=== PATIENT | female | born 2000 | race Caucasian/White ===

== ENCOUNTER 2022-05-17 10:00 | Emergency (ER) | payer OTHER, SELFPAY ==
[2022-05-17 10:55] VITALS: BP 148/77; PULSE 75; RESP 16; TEMP 36.9; O2SAT 100
--- NOTE | 2022-05-17 11:46 | ED.EYEPROB ---
HPI - Eye Problem General Chief complaint: Eye Problems Stated complaint: right eye redness Source: patient and family (significant other ) Mode of arrival: ambulatory Limitations: no limitations History of Present Illness HPI Narrative: 21-year-old female presents to [facility] with complaints of redness, irritation, drainage and matting to her right eye the past 2 days. Patient reports that her nephew recently had pinkeye and she also works at a local daycare. Patient reports that she does wear contacts but has not been wearing them since symptoms started. Patient is currently wearing glasses today. Patient denies injury to right. Patient denies visual changes, fever, body aches, chills, nausea vomiting or diarrhea. MD chief complaint: eye redness Onset (ago): day(s) (2) Location: right eye Mechanism: none Associated symptoms: none Treatments Prior to Arrival: none Related Data Allergies Allergy/AdvReac Type Severity Reaction Status Date / Time No Known Allergies Allergy Verified 05/17/22 11:27 Review of Systems Constitutional: Constitutional: Denies chills, Denies fatigue, Denies fever(s) and Denies weakness Eyes: Comments: right eye redness, irritation and drainage ENT: Denies vertigo, Denies dizziness, Denies nasal congestion and Denies sore throat Cardiovascular: Cardiovascular: Denies chest pain Respiratory: Respiratory: Denies cough, Denies dyspnea and Denies wheezing Gastrointestinal: Gastrointestinal: Denies diarrhea, Denies nausea and Denies vomiting Integumentary/Breasts: Skin/Breast: Denies rash Neurologic: Denies vertigo and Denies dizziness PMFSH Comments At time of signature, I agree with nursing past medical, surgical, social and family history. There is no relevant family history pertinent to the presenting complaint. Exam Const: General: healthy appearing and no acute distress Nutritional Appearance: well nourished Orientation/consciousness: patient oriented x3 Limitations: no limitations and No altered mental status HENMT: Head: normal to inspection Mouth: Yes Normal oral and palatal mucosa present and Yes moist mucous membranes Throat: posterior oropharynx normal and uvula midline Eyes: Conjunctivae: conjunctival abnormality right Pupils: Equal, round and reactive pupils present Direct Ophthalmoscopy: no photophobia Neck: Neck: normal visual inspection Resp: Effort & Inspection: normal respiratory effort and not labored Auscultation: clear to auscultation bilaterally, no crackles, no rales and no rhonchi Cardio: Rate: regular rate Rhythm: regular rhythm Heart sounds: no murmurs Skin: General skin exam: normal color Rashes: no rashes Neuro: General: patient oriented x3 Psych: Affect: normal affect Attitude: cooperative Course Course Level of Care: Express Care Visit Vital Signs Vital signs: Vital Signs Temperature 36.9 C 05/17/22 10:55 Pulse Rate 75 05/17/22 10:55 Respiratory Rate 16 05/17/22 10:55 Blood Pressure 148/77 H 05/17/22 10:55 Pulse Oximetry 100 05/17/22 10:55 Oxygen Delivery Room Air 05/17/22 10:55 Temperature 36.9 C 05/17/22 10:55 Pulse Rate 75 05/17/22 10:55 Respiratory Rate 16 05/17/22 10:55 Blood Pressure 148/77 H 05/17/22 10:55 Pulse Oximetry 100 05/17/22 10:55 Oxygen Delivery Room Air 05/17/22 10:55 MDM - Eye Problem MDM Narrative Medical decision making narrative: discussed conjunctivitis with patient. She agrees to use eyedrops as prescribed. Instructed patient to avoid wearing contacts until symptoms have resolved. Differential Diagnosis Differential diagnosis: Likely conjunctivitis and subconjunctival hemorrhage Critical Care Time Critical Care Time Critical Care Time: No Discharge Plan Discharge Clinical Impression: Bacterial conjunctivitis Patient Disposition: Home, Self-Care Condition: Stable Instructions: Antibiotic Form, Conjunctivitis (ED) Additional Instructi
== END 2022-05-17 11:58 | disposition home or self-care (01) ==
PROVIDERS: Emergency Provider Nurse Practitioner Family
DX: H10.9 Unspecified conjunctivitis (principal)
CPT/HCPCS: 99203; G0463